=== PATIENT | female | born 1935 | race Caucasian/White ===

== ENCOUNTER 2017-09-25 19:45 | Inpatient (IN) | payer OTHER ==
[~2017-09-25] VITALS: Ht 160 cm; Wt 89.4 kg
[2017-09-25 20:47] VITALS: BP 155/79; PULSE 78; TEMP 36.7; O2SAT 97; Ht 160 cm; Wt 89.4 kg
[2017-09-25 21:00] VITALS: BP 155/79; PULSE 79; TEMP 36.7; O2SAT 99
[2017-09-25] MEDS ORDERED: NF34 (21:21)
[2017-09-25] MEDS ORDERED: ASPI1TAB83 PO (21:21)
[2017-09-25] MEDS ORDERED: ADVIN50/60 INH (21:21)
[2017-09-25] MEDS ORDERED: MICO2CRE48 (21:21)
[2017-09-25] MEDS ORDERED: GUAISYP4 PO (21:21)
[2017-09-25] MEDS ORDERED: SITA50TA3 PO (21:21)
[2017-09-25] MEDS ORDERED: LEVO100T PO (21:21)
[2017-09-25] MEDS ORDERED: COLE1TAB PO (21:21)
[2017-09-25] MEDS ORDERED: GLIP-199 PO (21:21)
[2017-09-25] MEDS ORDERED: METF-384 PO (21:21)
[2017-09-25] MEDS ORDERED: MAGNESIUM HYDROXIDE SUSP 30 ML UDC PO PRN ×2 (22:00→22:15)
[2017-09-25] MEDS ORDERED: ONDANSETRON INJ 2 MG/ML 2 ML VIAL IV PRN (22:00)
[2017-09-25] MEDS ORDERED: GUAIFENESIN/CODEINE 100MG/10MG 5ML UDC PO PRN (22:00)
[2017-09-25] MEDS ORDERED: POLYETHYLENE (MIRALAX) 17 GM PACK PO PRN (22:00)
[2017-09-25] MEDS ORDERED: ALUMINUM/MAGNESIUM/SIMETH (MAALOX MAX) 30 ML UDC PO PRN (22:00)
[2017-09-25 22:11] VITALS: BP 155/79; PULSE 79; TEMP 36.7; O2SAT 99
[2017-09-25] MEDS ORDERED: NALOXONE HCL 0.4 MG/1 ML VIAL/CARP IV PRN (22:15)
[2017-09-25] MEDS ORDERED: SOD PHOSPHATE/SOD BIPHOSPHATE ENEMA 132 ML BTL PR PRN (22:15)
[2017-09-25] MEDS ORDERED: PATIENT'S ALLERGY INFO NEEDS ENTERED SCH (22:15)
[2017-09-25] MEDS ORDERED: BISACODYL 10 MG SUPP PR PRN (22:15)
[2017-09-25] MEDS ORDERED: GLUCAGON FOR INJ 1 MG VIAL SQ PRN (22:45)
[2017-09-25] MEDS ORDERED: GLUCOSE 10 TABS/TUBE PO PRN (22:45)
[2017-09-25] MEDS ORDERED: DEXTROSE 50% 50 ML SYR IV PRN (22:45)
[2017-09-25] MEDS ORDERED: GLUCOSE 40% GEL 15 GM TUBE PO PRN (22:45)
[2017-09-25 23:13] LABS: HEMATOCRIT 34.8 % (37-47); HEMOGLOBIN 11.3 g/dL (12.0-16.0); MEAN CELL VOLUME 88.1 fL (80-100); MEAN CORPUSCULAR HEMOGLOBIN 28.6 pg (25-34); MEAN CORPUSCULAR HGB CONC 32.5 g/dl (32-36); MEAN PLATELET VOLUME 9.5 fL (7.4-10.4); PLATELET COUNT 275 K/uL (130-400); RED CELL DISTRIBUTION WIDTH CV 14.4 % (11.5-14.5); RED CELL DISTRIBUTION WIDTH SD 46.4 fL (36.4-46.3)
--- NOTE | 2017-09-25 23:15 | History and Physical ---
History & Physical Date & Time of Service: Sep 25, 2017 at 22:53 Chief Complaint: Left Hip Fracture Primary Care Physician: Miles Poe M.D. History of Present Illness Source: patient, hospital records 82 y/o F Hx HPL, hypothyroidism, DM II. Presents as a transfer from an outside hospital due to a L hip fracture. The pt was working outside her house, lost her balance, and fell on her L side. She remained on the ground for 45 min waiting for a car to pass by and then dragged herself indoors to call EMS. She denies symptoms preceding her fall such as CP, SOB, palpitations or lightheadedness. A L intertrochanteric fracture was confirmed on arrival to the hospital. The pt normally mobilizes with a cane. She has a chair-lift to ascend her stairs. She states she remains active throughout the day and does not report SOB. She denies a history of CAD, CHF or cerebrovascular disease. She states that her mitral valve is "weak". She has a LBBB which dates back to the 1980s. She stated that her MD at one point thought she had a silent DC but then told her that this was not the case. Past Medical/Surgical History 1) HPL 2) DM II 3) Hypothyroidism 4) Mitral valve disease (not confirmed) 5) LBBB Social History MAintains independence - no history of smoking or smoking Smoking Status: Never Smoker Allergies Coded Allergies: Felodipine (Verified Allergy, Unknown, RASH, 09/25/17) Gabapentin (Verified Allergy, Unknown, RASH, 09/25/17) Penicillins (Verified Allergy, Unknown, RASH, 09/25/17) Sulfa Antibiotics (Verified Allergy, Unknown, RASH, 09/25/17) Tetracycline (Verified Allergy, Unknown, RASH, 09/25/17) Home Medications Scheduled Aspirin (Aspirin), 1 TAB PO DAILY Colestipol Hcl (Colestid), 5 GM PO DAILY Fluticasone Prop/Salmeterol (Advair Diskus 500/50 60 Dose), 1 PUFFS INH BID Glipizide (Glipizide Er), 1 TAB PO HS Levothyroxine Sodium (Synthroid), 1 TAB PO DAILY Metformin Hcl (Glucophage), 1,000 MG PO BID Sitagliptin (Januvia), 50 MG PO DAILY Scheduled PRN Guaifenesin/Codeine (Robitussin-Ac Syrup), 5 ML PO Q4 PRN for Cough Miscellaneous Medications Clobetasol Propionate (Clobetasol Propionate) Miconazole Nitrate Vaginal (Miconazole) Review of Systems Constitutional: No fever, No chills, No sweats Eyes: No worsening of vision ENT: No hearing loss, No unusual epistaxis, No nasal symptoms Respiratory: No cough, No wheezing Cardiovascular: No chest pain, No orthopnea, No PND Abdomen: No pain, No nausea, No vomiting Musculoskeletal: + joint pain (Pain in L hip - describes stiffness on R and chronic pain in R 1st toe) Genitourinary - Female: No dysuria, No urinary frequency, No urinary urgency Neurologic: No memory loss Psychiatric: No depression symptoms Endocrine: No fatigue Hematologic / Lymphatic: No abnormal bleeding/bruising Integumentary: No rash Allergic / Immunologic: No environmental allergies Physical Exam Vital Signs Date Time Temp Pulse Resp B/P (MAP) Pulse Ox O2 Delivery O2 Flow Rate FiO2 09/25/17 22:11 36.7 79 18 99 09/25/17 21:00 99 Room Air 09/25/17 21:00 36.7 79 18 155/79 (104) 99 Room Air 09/25/17 20:47 36.7 78 18 155/79 97 Room Air General Appearance: WD/WN, no apparent distress Head: normocephalic Eyes: normal inspection ENT: normal ENT inspection, pharynx normal Neck: supple, no JVD Respiratory/Chest: chest non-tender, lungs clear Cardiovascular: regular rate, rhythm, no edema Abdomen/GI: normal bowel sounds, non tender, soft Back: normal inspection, no CVA tenderness Extremities/Musculoskelatal: + pertinent finding (Pain to palpation on L - pulses present BL) 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 Presents as a transfer from an outside hospital due to a L hip fracture. The pt was working outside her house, lost her balance, and fell on her L side. She remained on the ground for 45 min waiting for a car to pass by and then dragged herself indoors to call EMS. She denies symptoms preceding her fall such as CP, SOB, palpitations or lightheadedness. A L intertrochanteric fracture was confirmed on arrival to the hospital. The pt normally mobilizes with a cane. She has a chair-lift to ascend her stairs. She states she remains active throughout the day and does not report SOB. She denies a history of CAD, CHF or cerebrovascular disease. She states that her mitral valve is "weak". She has a LBBB which dates back to the 1980s. She stated that her MD at one point thought she had a silent DC but then told her that this was not the case. 1) L intertrochanteric fracture. If we are to overlook her LBBB, the pt's RCRI is technically 0.9%. In order to more accurately gauge her risk however, it may be prudent to call her PCP AM to clarify her cardiac history. NPO - IVF and analgesics provided - labs are pending at the time of admission. 2) DM II - placed on SS. 3) Hypothyroidism - cont Synthroid. 4) HPL - can resume meds post-op when eating Full code - SCDs pending surgery eval Total time for this admit including review of labs, meds, imaging, records - discussion with pt and ER attending - 35 min Advanced Directives Existing Living Will: Yes Existing Power of Quill Winder: Yes Resuscitation Status VTE Prophylaxis Will order VTE Prophylaxis: Yes
[2017-09-25] MEDS: MoRPHine SULFATE 4 MG/ML 1 ML CARP\\VIAL IV PRN (23:38)
[2017-09-25 23:39] LABS: CALCIUM 10.2 mg/dl (8.5-10.1); CREATININE 1.1 mg/dl (0.60-1.20); POTASSIUM 5.2 mmol/L (3.5-5.1)
[2017-09-25] MEDS: INSULIN ASPART 100 UNITS/ML 3 ML PEN SC SCH (23:40)
[2017-09-25 23:54] VITALS: BP 131/67; PULSE 71; TEMP 36.4; O2SAT 94
[2017-09-26] VITALS (9 sets, daily range): BP systolic 112–150; BP diastolic 60–77; PULSE 71–87; TEMP 36.3–37.1; O2SAT 93–99
[2017-09-26] MEDS ORDERED: NURSING DECISION MEDICATION ORDER SCH ×2 (03:00→05:00)
[2017-09-26] MEDS: SODIUM CHLORIDE 0.9% 1000ML 1,000 ML IV SCH ×2 (03:04→19:22)
[2017-09-26] MEDS: INSULIN ASPART 100 UNITS/ML 3 ML PEN SC SCH ×5 (04:03→20:56)
[2017-09-26] MEDS: LEVOTHYROXINE 100 MCG TAB PO SCH (05:58)
[2017-09-26] MEDS ORDERED: VANCOMYCIN IV 1,000 MG in SODIUM CHLORIDE 0.9% 250ML 250 ML IV SCH (06:00)
--- NOTE | 2017-09-26 08:23 | Family Medicine Progress Note ---
Progress Note Date of Service Sep 26, 2017. Resident Tracking Resident Involvement: Resident Care Provided Care Provided: Adult Hospital Medicine
[2017-09-26 08:43] LABS: BASO % 0.6 %; BASO ABS # 0.07 K/uL (0-0.2); EOS % 1.1 %; EOS ABS # 0.12 K/uL (0-0.5); HEMATOCRIT 32.4 % (37-47); HEMOGLOBIN 10.4 g/dL (12.0-16.0); IG# 0.07 K/uL (0.00-0.02); LYMPH % 12.9 %; LYMPH ABS # 1.47 K/uL (1.2-3.4); MEAN CELL VOLUME 88.5 fL (80-100); MEAN CORPUSCULAR HEMOGLOBIN 28.4 pg (25-34); MEAN CORPUSCULAR HGB CONC 32.1 g/dl (32-36); MEAN PLATELET VOLUME 9.2 fL (7.4-10.4); MONO % 8.5 %; MONO ABS # 0.97 K/uL (0.11-0.59); NEUT % 76.3 %; NEUT ABS # 8.66 K/uL (1.4-6.5); PLATELET COUNT 242 K/uL (130-400); RED CELL DISTRIBUTION WIDTH CV 14.5 % (11.5-14.5); RED CELL DISTRIBUTION WIDTH SD 47.3 fL (36.4-46.3); WHITE BLOOD COUNT 11.36 K/uL (4.8-10.8)
[2017-09-26] MEDS ORDERED: ASPIRIN 81 MG ECTAB PO SCH (09:00)
--- NOTE | 2017-09-26 09:04 | Orthopedic Consultation ---
Orthopedic Consultation Date of Consultation: Sep 26, 2017. Attending Physician: Daneyl Cates M.D. Reason for Consultation: Left hip pain/fracture (Foritno Harp PA) History of Present Illness Lawanda is a 82 y/o female from [place]. She was on her porch yesterday putting the tarp over her firewood when she lost her balance and fell landing on her left side. She had immediate hip pain. She crawled inside and called 911. She had xrays at [place] and was transferred here for definitive care. Per the reports, she has a left intertroch hip fx. She has some bruises and abrasions on her arms, some left rib pain. No other complaints. She reports some pain in this hip prior to her fall and used a cane for ambulation. Her complete history was reviewed and please refer to initial h & p. (Fortino Harp PA) Social History Smoking Status: Never Smoker (Fortino Harp PA) Allergies Coded Allergies: Felodipine (Verified Allergy, Unknown, RASH, 09/25/17) Gabapentin (Verified Allergy, Unknown, RASH, 09/25/17) Penicillins (Verified Allergy, Unknown, RASH, 09/25/17) Sulfa Antibiotics (Verified Allergy, Unknown, RASH, 09/25/17) Tetracycline (Verified Allergy, Unknown, RASH, 09/25/17) Home Medications Scheduled Aspirin (Aspirin), 1 TAB PO DAILY Colestipol Hcl (Colestid), 5 GM PO DAILY Fluticasone Prop/Salmeterol (Advair Diskus 500/50 60 Dose), 1 PUFFS INH BID Glipizide (Glipizide Er), 1 TAB PO HS Levothyroxine Sodium (Synthroid), 1 TAB PO DAILY Metformin Hcl (Glucophage), 1,000 MG PO BID Sitagliptin (Januvia), 50 MG PO DAILY Scheduled PRN Guaifenesin/Codeine (Robitussin-Ac Syrup), 5 ML PO Q4 PRN for Cough Miscellaneous Medications Clobetasol Propionate (Clobetasol Propionate) Miconazole Nitrate Vaginal (Miconazole) Current Inpatient Medications Current Inpatient Medications Medications (Trade) Dose Ordered Sig/Kaley Route Start Time Stop Time Status Last Admin Dose Admin Salmeterol Xinafoate/ Fluticasone (Advair Diskus 500/50 Inh) 1 puff BID INH 09/26/17 09:00 10/26/17 08:59 Codeine Phosphate/ Guaifenesin (Robitussin-AC Sugar Free Syrup) 5 ml Q4 PRN PO 09/25/17 22:00 10/25/17 21:59 Levothyroxine Sodium (Synthroid Tab) 100 mcg DAILYBB PO 09/26/17 06:00 10/26/17 05:59 09/26/17 05:58 100 MCG Acetaminophen (Tylenol Tab) 650 mg Q4H PRN PO 09/25/17 22:00 10/25/17 21:59 Al Hydrox/Mg Hydrox/Simethicone (Maalox Max Susp) 15 ml Q4H PRN PO 09/25/17 22:00 10/25/17 21:59 Magnesium Hydroxide (Milk Of Magnesia Susp) 30 ml Q6H PRN PO 09/25/17 22:00 10/25/17 21:59 Polyethylene (Miralax Powder Packet) 17 gm DAILY PRN PO 09/25/17 22:00 10/25/17 21:59 Ondansetron HCl (Zofran Inj) 4 mg Q6H PRN IV 09/25/17 22:00 10/25/17 21:59 Morphine Sulfate (MoRPHine SULFATE INJ) 4 mg Q3H PRN IV 09/25/17 22:15 10/09/17 22:14 09/25/17 23:38 4 MG Naloxone HCl (Narcan Inj) 0.1 mg PRN PRN IV 09/25/17 22:15 10/25/17 22:14 Magnesium Hydroxide (Milk Of Magnesia Susp) 30 ml DAILY PRN PO 09/25/17 22:15 10/25/17 22:14 Bisacodyl (Dulcolax Supp) 10 mg DAILY PRN [place] 09/25/17 22:15 10/25/17 22:14 Sodium Biphosphate/ Sodium Phosphate (Fleet Enema) 132 ml PRN PRN [place] 09/25/17 22:15 Glucose (Glucose 40% Gel) 15-30 GRAMS 15 GRAMS... UD PRN PO 09/25/17 22:45 10/25/17 22:44 Glucose (Glucose Chew Tab) 4-8 Tablets 4 Tabl... UD PRN PO 09/25/17 22:45 10/25/17 22:44 Dextrose (Dextrose 50% 50ML Syringe) 25-50ML OF 50% DW IV FOR... UD PRN IV 09/25/17 22:45 10/25/17 22:44 Glucagon (Glucagon Inj) 1 mg UD PRN SQ 09/25/17 22:45 10/25/17 22:44 Sodium Chloride 1,000 ml @ 80 mls/hr [id number] IV 09/26/17 03:00 10/26/17 02:59 09/26/17 03:04 80 MLS/HR Miconazole Nitrate (Desenex Powder) 1 appln PRN PRN EXT 09/26/17 03:15 10/26/17 03:14 Insulin Aspart (novoLOG ASPART) SLIDING SCALE G... Q6 SC 09/26/17 06:00 10/25/17 21:59 Magnesium Oxide (Mag-Ox Tab) 400 mg BID PO 09/26/17 09:00 09/27/17 09:01 (Fortino Harp PA) Physical Exam Date Time Temp Pulse Resp B/P (MAP) Pulse Ox O2 Delivery O2 Flow Rate FiO2 09/26/17 07:25 Room Air 09/26/17 07:02 36.6 77 16 130/76 (94) 96 Room Air 09/26/17 00:30 Room Air 09/26/17 00:20 36.9 77 18 129/76 (93) 93 Room Air 09/26/17 00:02 36.4 71 20 97 09/25/17 23:54 36.4 71 20 131/67 (88) 94 Room Air 09/25/17 22:11 36.7 79 18 99 09/25/17 21:00 99 Room Air 09/25/17 21:00 36.7 79 18 155/79 (104) 99 Room Air 09/25/17 20:47 36.7 78 18 155/79 97 Room Air She is alert and oriented. NAD. Supine in bed. No tenderness of her c-spine. No pain with ROM of her upper extremities. She has some abrasions and bruises on her arms/hands. No pain with ROM of right hip or right lower extremity. She is able to DF/PF bilaterally. NVI. She has tenderness of left hip. I did not do any ROM at this time. SHe does have some tenderness of the left lower ribs. No bruising noted in this area and no difficulty breathing. (Fortino Harp PA) Laboratory Results Last 24 Hours Test 09/25/17 22:50 09/25/17 23:00 09/26/17 03:53 09/26/17 05:54 White Blood Count 16.40 K/uL Red Blood Count 3.95 M/uL Hemoglobin 11.3 g/dL Hematocrit 34.8 % Mean Corpuscular Volume 88.1 fL Mean Corpuscular Hemoglobin 28.6 pg Mean Corpuscular Hemoglobin Concent 32.5 g/dl RDW Standard Deviation 46.4 fL RDW Coefficient of Variation 14.4 % Platelet Count 275 K/uL Mean Platelet Volume 9.5 fL Sodium Level 138 mmol/L Potassium Level 5.2 mmol/L Chloride Level 107 mmol/L Carbon Dioxide Level 22 mmol/L Anion Gap 9.0 mmol/L Blood Urea Nitrogen 24 mg/dl Creatinine 1.10 mg/dl Est Creatinine Clear Calc Drug Dose 41.1 ml/min Estimated GFR () 53.8 Estimated GFR (Non- 46.4 BUN/Creatinine Ratio 21.8 Random Glucose 189 mg/dl Calcium Level 10.2 mg/dl Magnesium Level 1.7 mg/dl Total Creatine Kinase 82 U/L Bedside Glucose 185 mg/dl 192 mg/dl 156 mg/dl Test 09/26/17 08:34 White Blood Count 11.36 K/uL Red Blood Count 3.66 M/uL Hemoglobin 10.4 g/dL Hematocrit 32.4 % Mean Corpuscular Volume 88.5 fL Mean Corpuscular Hemoglobin 28.4 pg Mean Corpuscular Hemoglobin Concent 32.1 g/dl Platelet Count 242 K/uL Mean Platelet Volume 9.2 fL Neutrophils (%) (Auto) 76.3 % Lymphocytes (%) (Auto) 12.9 % Monocytes (%) (Auto) 8.5 % Eosinophils (%) (Auto) 1.1 % Basophils (%) (Auto) 0.6 % Neutrophils # (Auto) 8.66 K/uL Lymphocytes # (Auto) 1.47 K/uL Monocytes # (Auto) 0.97 K/uL Eosinophils # (Auto) 0.12 K/uL Basophils # (Auto) 0.07 K/uL RDW Standard Deviation 47.3 fL RDW Coefficient of Variation 14.5 % Immature Granulocyte % (Auto) 0.6 % Immature Granulocyte # (Auto) 0.07 K/uL (Fortino Harp PA) Assessment & Plan Assessment: Left hip pain/ hip fracture Plan: She is npo. We are waiting to see her xrays still but per the report she has an intertroch fx. I discussed treatment for this and at this time we did recommend long IM nailing of the hip fx, to be done by Dr. Smith today. Procedure was explained including risks, benefits, and alternatives to surgery. She wants to proceed with surgery. We may need to get new xrays today if we are not able to locate her disc from [place]. Teds/scd's for dvt prophylaxis. (Fortino Harp PA)
[2017-09-26 09:07] LABS: CALCIUM 9.7 mg/dl (8.5-10.1); CREATININE 1.03 mg/dl (0.60-1.20); POTASSIUM 4.9 mmol/L (3.5-5.1)
[2017-09-26] MEDS: MoRPHine SULFATE 4 MG/ML 1 ML CARP\\VIAL IV PRN ×2 (09:14→13:26)
[2017-09-26] MEDS ORDERED: VANCOMYCIN CONSULT ACTIVE PRN ×2 (09:30→16:15)
[2017-09-26 09:50] LABS: PTT PATIENT 23.9 SECONDS (21.0-31.0)
[2017-09-26] MEDS: MICONAZOLE NITRATE POWDER 43 GM EXT PRN (10:02)
--- NOTE | 2017-09-26 10:07 | DIAGNOSTIC IMAGING REPORT ---
L PELVIS/UNILATERAL HIP 2-3VIEWS HISTORY: 82 years-old Female hip pain acute left hip pain COMPARISON: None available TECHNIQUE: Portable AP view the pelvis with two views of the left hip FINDINGS: Moderate degenerative changes of the bilateral femoral acetabular joints no pelvic ring fracture identified. Bones appear mildly demineralized. There is an acute intertrochanteric fracture of the left femur with approximately 11 mm separation of the fracture fragments. No significant medial or lateral displacement. The lesser trochanter demonstrates comminuted fracture. Mild soft tissue swelling about the left hip. Peripheral vascular disease. IMPRESSION: Acute intertrochanteric left hip fracture with mild displacement. The above report was generated using voice recognition software. It may contain grammatical, syntax or spelling errors. Electronically signed by: Bruno Kc M.D. 09/26/2017 10:06 AM Dictated Date/Time: 09/26/2017 10:03 AM
[2017-09-26] MEDS: MAGNESIUM OXIDE 400 MG TAB PO SCH ×2 (10:20→20:52)
[2017-09-26] MEDS: FLUTICASONE/SALMETEROL (ADVAIR) 500/50 INH 14 PUFF INH SCH ×2 (10:21→20:53)
--- NOTE | 2017-09-26 11:32 | Progress Note ---
Medicine Progress Note Date & Time of Visit: Sep 26, 2017 at 11:28 . Subjective 82 YO female transferred from [facility] ED yesterday with left hip fracture. Admitted by [facility], being transferred to our service today because of [facility] PCP. History of aortic valve sclerosis without stenosis, asthma, sleep apnea on CPAP , sarcoidosis, DM type II, CKD III. Echo performed at [facility] 01/16/14 demonstrated mild concentric LVH, LVEF 60%, mild aortic valve sclerosis. No chest pain. No cough or dyspnea. No nausea or vomiting. Chronic loose stools. . Objective Last 8 Hrs Date Time Temp Pulse Resp B/P (MAP) Pulse Ox O2 Delivery O2 Flow Rate FiO2 09/26/17 11:10 Room Air 09/26/17 07:25 Room Air 09/26/17 07:02 36.6 77 16 130/76 (94) 96 Room Air Physical Exam: General- adult female, no distress Neck- no JVD Lungs- clear Heart- regular, 1/6 systolic murmur at base, no gallop Abdomen- normal bowel sounds, soft, nontender Extremities- SCDs applied Neuro- alert, oriented . Laboratory Results: Last 24 Hours Test 09/25/17 22:50 09/25/17 23:00 09/26/17 03:53 09/26/17 05:54 White Blood Count 16.40 K/uL Red Blood Count 3.95 M/uL Hemoglobin 11.3 g/dL Hematocrit 34.8 % Mean Corpuscular Volume 88.1 fL Mean Corpuscular Hemoglobin 28.6 pg Mean Corpuscular Hemoglobin Concent 32.5 g/dl RDW Standard Deviation 46.4 fL RDW Coefficient of Variation 14.4 % Platelet Count 275 K/uL Mean Platelet Volume 9.5 fL Sodium Level 138 mmol/L Potassium Level 5.2 mmol/L Chloride Level 107 mmol/L Carbon Dioxide Level 22 mmol/L Anion Gap 9.0 mmol/L Blood Urea Nitrogen 24 mg/dl Creatinine 1.10 mg/dl Est Creatinine Clear Calc Drug Dose 41.1 ml/min Estimated GFR () 53.8 Estimated GFR (Non- 46.4 BUN/Creatinine Ratio 21.8 Random Glucose 189 mg/dl Calcium Level 10.2 mg/dl Magnesium Level 1.7 mg/dl Total Creatine Kinase 82 U/L Bedside Glucose 185 mg/dl 192 mg/dl 156 mg/dl Test 09/26/17 08:34 09/26/17 09:31 White Blood Count 11.36 K/uL Red Blood Count 3.66 M/uL Hemoglobin 10.4 g/dL Hematocrit 32.4 % Mean Corpuscular Volume 88.5 fL Mean Corpuscular Hemoglobin 28.4 pg Mean Corpuscular Hemoglobin Concent 32.1 g/dl Platelet Count 242 K/uL Mean Platelet Volume 9.2 fL Neutrophils (%) (Auto) 76.3 % Lymphocytes (%) (Auto) 12.9 % Monocytes (%) (Auto) 8.5 % Eosinophils (%) (Auto) 1.1 % Basophils (%) (Auto) 0.6 % Neutrophils # (Auto) 8.66 K/uL Lymphocytes # (Auto) 1.47 K/uL Monocytes # (Auto) 0.97 K/uL Eosinophils # (Auto) 0.12 K/uL Basophils # (Auto) 0.07 K/uL RDW Standard Deviation 47.3 fL RDW Coefficient of Variation 14.5 % Immature Granulocyte % (Auto) 0.6 % Immature Granulocyte # (Auto) 0.07 K/uL Sodium Level 137 mmol/L Potassium Level 4.9 mmol/L Chloride Level 108 mmol/L Carbon Dioxide Level 24 mmol/L Anion Gap 5.0 mmol/L Blood Urea Nitrogen 23 mg/dl Creatinine 1.03 mg/dl Est Creatinine Clear Calc Drug Dose 43.9 ml/min Estimated GFR () 58.2 Estimated GFR (Non- 50.2 BUN/Creatinine Ratio 22.2 Random Glucose 154 mg/dl Calcium Level 9.7 mg/dl Prothrombin Time 10.4 SECONDS Prothromb Time International Ratio 1.0 Activated Partial Thromboplast Time 23.9 SECONDS Partial Thromboplastin Ratio 0.9 Date/Time Source Procedure Growth Status 09/25/17 23:15 Nasal MRSA DNA Surveillance Screen - Final Specimen Negative for MRSA by DNA Probe Complete Diagnostic Imaging: SINGLE VIEW CHEST FINDINGS: An AP, portable, semierect chest radiograph is obtained. No prior studies are available for comparison at the time of dictation. The examination is degraded by portable technique and patient rotation. The cardiomediastinal silhouette is unremarkable, noting atherosclerotic calcification of the thoracic aorta. Nonspecific interstitial thickening is noted. No airspace consolidation or pleural effusion is identified. No pneumothorax is seen. The skeletal structures are osteopenic. The bony thorax is grossly intact. Degenerative change is noted throughout the thoracic spine. Surgical clips are present in the left lower neck. IMPRESSION: No acute cardiopulmonary abnormality. Electronically signed by: Pedro Cuadra M.D. 09/26/2017 11:54 AM Dictated Date/Time: 09/26/2017 11:53 AM L PELVIS/UNILATERAL HIP 2-3VIEWS FINDINGS: Moderate degenerative changes of the bilateral femoral acetabular joints no pelvic ring fracture identified. Bones appear mildly demineralized. There is an acute intertrochanteric fracture of the left femur with approximately 11 mm separation of the fracture fragments. No significant medial or lateral displacement. The lesser trochanter demonstrates comminuted fracture. Mild soft tissue swelling about the left hip. Peripheral vascular disease. IMPRESSION: Acute intertrochanteric left hip fracture with mild displacement. The above report was generated using voice recognition software. It may contain grammatical, syntax or spelling errors. Electronically signed by: Bruno Kc M.D. 09/26/2017 10:06 AM Dictated Date/Time: 09/26/2017 10:03 AM . Other Studies: EKG performed at 1127 reviewed and demonstrated normal sinus rhythm at 80/minute , left bundle branch block, conduction related repolarization abnormalities. . Assessment & Plan INTERTROCHANTERIC FRACTURE LEFT HIP Medically stable for repair. AORTIC SCLEROSIS No significant stenosis per echo 2013. LEFT BUNDLE BRANCH BLOCK Old EKG's reviewed. LBBB was noted in 2009. ASTHMA / SARCOIDOSIS Pulmonary status stable. Continue Advair. Nebs PRN. Incentive spirometry. DM TYPE 2 Usually well-controlled. Hgb A1C 5.5 06/07/18. Hold oral agents during hospital stay. Lantus / NovoLog per protocol. HYPOTHYROIDISM TSH 11.47 06/07/17. Check repeat TSH. Continue levothyroxine. VTE PROPHYLAXIS Per hip fracture protocol. SCD's ordered preoperatively. DISPOSITION To be determined. Medical follow-up with Dr. Ingram. Medically stable for OR. Copy of echo 2013 placed on chart. . Current Inpatient Medications: Current Inpatient Medications Medications (Trade) Dose Ordered Sig/Kaley Route Start Time Stop Time Status Last Admin Dose Admin Salmeterol Xinafoate/ Fluticasone (Advair Diskus 500/50 Inh) 1 puff BID INH 09/26/17 09:00 10/26/17 08:59 09/26/17 10:21 1 PUFF Codeine Phosphate/ Guaifenesin (Robitussin-AC Sugar Free Syrup) 5 ml Q4 PRN PO 09/25/17 22:00 10/25/17 21:59 Levothyroxine Sodium (Synthroid Tab) 100 mcg DAILYBB PO 09/26/17 06:00 10/26/17 05:59 09/26/17 05:58 100 MCG Acetaminophen (Tylenol Tab) 650 mg Q4H PRN PO 09/25/17 22:00 10/25/17 21:59 Al Hydrox/Mg Hydrox/Simethicone (Maalox Max Susp) 15 ml Q4H PRN PO 09/25/17 22:00 10/25/17 21:59 Magnesium Hydroxide (Milk Of Magnesia Susp) 30 ml Q6H PRN PO 09/25/17 22:00 10/25/17 21:59 Polyethylene (Miralax Powder Packet) 17 gm DAILY PRN PO 09/25/17 22:00 10/25/17 21:59 Ondansetron HCl (Zofran Inj) 4 mg Q6H PRN IV 09/25/17 22:00 10/25/17 21:59 Morphine Sulfate (MoRPHine SULFATE INJ) 4 mg Q3H PRN IV 09/25/17 22:15 10/09/17 22:14 09/26/17 09:14 4 MG Naloxone HCl (Narcan Inj) 0.1 mg PRN PRN IV 09/25/17 22:15 10/25/17 22:14 Magnesium Hydroxide (Milk Of Magnesia Susp) 30 ml DAILY PRN PO 09/25/17 22:15 10/25/17 22:14 Bisacodyl (Dulcolax Supp) 10 mg DAILY PRN [place] 09/25/17 22:15 10/25/17 22:14 Sodium Biphosphate/ Sodium Phosphate (Fleet Enema) 132 ml PRN PRN [place] 09/25/17 22:15 Glucose (Glucose 40% Gel) 15-30 GRAMS 15 GRAMS... UD PRN PO 09/25/17 22:45 10/25/17 22:44 Glucose (Glucose Chew Tab) 4-8 Tablets 4 Tabl... UD PRN PO 09/25/17 22:45 10/25/17 22:44 Dextrose (Dextrose 50% 50ML Syringe) 25-50ML OF 50% DW IV FOR... UD PRN IV 09/25/17 22:45 10/25/17 22:44 Glucagon (Glucagon Inj) 1 mg UD PRN SQ 09/25/17 22:45 10/25/17 22:44 Sodium Chloride 1,000 ml @ 80 mls/hr [id number] IV 09/26/17 03:00 10/26/17 02:59 09/26/17 03:04 80 MLS/HR Miconazole Nitrate (Desenex Powder) 1 appln PRN PRN EXT 09/26/17 03:15 10/26/17 03:14 09/26/17 10:02 1 APPLN Insulin Aspart (novoLOG ASPART) SLIDING SCALE G... Q6 SC 09/26/17 06:00 10/25/17 21:59 Magnesium Oxide (Mag-Ox Tab) 400 mg BID PO 09/26/17 09:00 09/27/17 09:01 09/26/17 10:20 400 MG Vancomycin HCl 1000 mg/Sodium Chloride 270 ml @ 125 mls/hr PREOP IV 09/26/17 06:00 09/26/17 18:00
--- NOTE | 2017-09-26 11:55 | DIAGNOSTIC IMAGING REPORT ---
SINGLE VIEW CHEST CLINICAL HISTORY: Preoperative examination. Hip fracture. FINDINGS: An AP, portable, semierect chest radiograph is obtained. No prior studies are available for comparison at the time of dictation. The examination is degraded by portable technique and patient rotation. The cardiomediastinal silhouette is unremarkable, noting atherosclerotic calcification of the thoracic aorta. Nonspecific interstitial thickening is noted. No airspace consolidation or pleural effusion is identified. No pneumothorax is seen. The skeletal structures are osteopenic. The bony thorax is grossly intact. Degenerative change is noted throughout the thoracic spine. Surgical clips are present in the left lower neck. IMPRESSION: No acute cardiopulmonary abnormality. Electronically signed by: Pedro Cuadra M.D. 09/26/2017 11:54 AM Dictated Date/Time: 09/26/2017 11:53 AM
--- NOTE | 2017-09-26 12:57 | History & Physical Bridge Note ---
H&P Re-Evaluation Bridge Note: I have examined the patient, reviewed the History & Physical and in the interval since the performance of the History & Physical I have noted the following changes of clinical significance: No changes noted
[2017-09-26] MEDS ORDERED: VANCOMYCIN 1GM/270ML NSS ONE (14:11)
[2017-09-26] MEDS ORDERED: LIDOCAINE HCL 2% 2 ML VIAL (20MG/ML) ONE (14:13)
[2017-09-26] MEDS ORDERED: DEXAMETHASONE SOD INJ 4 MG/ML VIAL ONE (14:13)
[2017-09-26] MEDS ORDERED: ONDANSETRON INJ 2 MG/ML 2 ML VIAL ONE ×2 (14:13→16:24)
[2017-09-26] MEDS ORDERED: PROPOFOL IV EMULSION 10 MG/ML 20 ML VIAL IV ONE (14:13)
[2017-09-26] MEDS ORDERED: FENTANYL CITRATE INJ 50 MCG/1 ML 2 ML VIAL ONE ×2 (14:14→15:24)
[2017-09-26] MEDS ORDERED: BUPIVACAINE/EPINEPHRINE 0.5% MPF 1:200,000 30 ML VIAL ONE (14:17)
[2017-09-26] MEDS ORDERED: ONDANSETRON INJ 2 MG/ML 2 ML VIAL IV PRN (15:00)
[2017-09-26] MEDS ORDERED: PROMETHAZINE HCL INJ 12.5 MG in SODIUM CHLORIDE 0.9% 50ML 50 ML IV PRN (15:00)
[2017-09-26] MEDS ORDERED: LABETALOL HCL IV 5 MG/ML 20ML IV PRN (15:00)
[2017-09-26] MEDS ORDERED: ATROPINE SULFATE 0.1 MG/ML 5ML SYR IV PRN (15:00)
[2017-09-26] MEDS ORDERED: HYDROmorphone INJ 1 MG/ML SYR IV PRN (15:00)
[2017-09-26] MEDS ORDERED: NALOXONE HCL 0.4 MG/1 ML VIAL/CARP IV PRN (15:00)
[2017-09-26] MEDS ORDERED: EpHEDrine SULFATE INJ 50 MG/ML AMP IV PRN (15:00)
[2017-09-26] MEDS ORDERED: FLUMAZENIL 0.1 MG/1 ML 10 ML VIAL IV PRN (15:00)
--- NOTE | 2017-09-26 16:05 | [facility] Post Operative Brief Note ---
Immediate Operative Summary Operative Date Sep 26, 2017. Pre-Operative Diagnosis Left Intertrochanteric Hip Fracture Post-Operative Diagnosis Left Intertrochanteric Hip Fracture Procedure(s) Performed Long Intramedullary Nailing Left Hip Surgeon Dr. Michael Smith Log Turner Surgeon(s) Migel Harp PA-C Estimated Blood Loss 100ML Findings Consistent with Post-Op Diagnosis Fluids (cc crystalloids) 800 cc Specimens none per surgeon Dr. Michael Smith Drains None Anesthesia Type General Complication(s) none Disposition Accompanied Pt To Recover: no Disposition: Recovery Room / PACU
[2017-09-26] MEDS ORDERED: MAGNESIUM HYDROXIDE SUSP 30 ML UDC PO PRN (16:15)
[2017-09-26] MEDS ORDERED: BISACODYL 10 MG SUPP PR PRN (16:15)
--- NOTE | 2017-09-26 16:22 | DIAGNOSTIC IMAGING REPORT ---
L HIP OR FILMS CLINICAL HISTORY: LT TROCH NAIL COMPARISON STUDY: Pelvis and left hip radiograph September 26, 2017. FLUOROSCOPY TIME: 1 minute and 38 seconds.. FINDINGS: 4 fluoroscopic images demonstrate internal fixation of the intertrochanteric fracture of the left femur with trochanteric nail. Hardware is intact. Fracture alignment has improved. There are no unexpected radiopaque foreign bodies. There is a distal screw. IMPRESSION: Expected findings following internal fixation of the intertrochanteric fracture of the left femur with trochanteric nail. Electronically signed by: Reid Newsome M.D. 09/26/2017 4:21 PM Dictated Date/Time: 09/26/2017 4:20 PM
[2017-09-26] MEDS ORDERED: NEOSTIGMINE METHYLSULFATE 5 MG/5 ML SYR ONE (16:24)
[2017-09-26] MEDS ORDERED: GLYCOPYRROLATE INJ 0.2 MG/ML VIAL ONE (16:24)
[2017-09-26] MEDS ORDERED: CISATRACURIUM BESYLATE IV SOLN 2 MG/ML 10 ML VIAL ONE (16:24)
[2017-09-26] MEDS ORDERED: HYDROmorphone INJ 0.5 MG/0.5 ML SYR ONE (16:45)
--- NOTE | 2017-09-26 16:50 | Anesthesiology Progress Note ---
Anesthesia Post Op Note Date & Time Sep 26, 2017 at 16:50 Vital Signs Pain Intensity: 6 Vital Signs Past 12 Hours Date Time Temp Pulse Resp B/P (MAP) Pulse Ox O2 Delivery O2 Flow Rate FiO2 09/26/17 16:45 36.4 72 16 152/52 99 Oxymask 2 09/26/17 16:35 76 16 153/61 100 Oxymask 10 09/26/17 16:25 82 18 162/58 100 Oxymask 10 09/26/17 16:18 36.4 96 18 149/95 99 Oxymask 10 09/26/17 11:10 Room Air 09/26/17 07:25 Room Air 09/26/17 07:02 36.6 77 16 130/76 (94) 96 Room Air Notes Mental Status: alert / awake / arousable, participated in evaluation Pt Amnestic to Procedure: Yes Nausea / Vomiting: adequately controlled Pain: adequately controlled Airway Patency, RR, SpO2: stable & adequate BP & HR: stable & adequate Hydration State: stable & adequate Anesthetic Complications: no major complications apparent
[2017-09-26] MEDS ORDERED: NURSING VERBAL MED ORDER ONE ×2 (18:30→19:15)
--- NOTE | 2017-09-26 18:30 | OPERATIVE REPORT ---
DATE OF OPERATION: 09/26/2017 SURGEON: Dr. Michael Smith. SHEET SORTER: TRENT Aguilar PREOPERATIVE DIAGNOSIS: Left displaced intertrochanteric hip fracture. POSTOPERATIVE DIAGNOSIS: Same. PROCEDURE PERFORMED: Left long cephalomedullary nailing of the left intertrochanteric hip fracture. COMPLICATIONS: None. ESTIMATED BLOOD LOSS: 100 mL. FLUID REPLACEMENT: 800 mL of fluid replacement. ANESTHESIA: General. SPECIMENS: None. OPERATIVE INDICATIONS: The patient is an 82-year-old female who ambulates with use of cane who sustained a fall yesterday. She lost her balance and fell and injured her left hip. She had acute onset of pain. She actually had to crawl to get to the phone and get some help and was taken to [facility] where x-rays revealed intertrochanteric hip fracture. She was transferred to our institution for care. The patient is medically optimized and indicated for surgical repair. OPERATIVE FINDINGS: Operative findings revealed comminuted fracture. It was fairly comminuted through the intertrochanteric area. The greater trochanter was broken off. OPERATIVE IMPLANTS: Operative implants consisted of: 1. Synthes left 340 x 11 mm long trochanteric nail. 2. A 90 mm helical blade. 3. A 5.0 x 40 distal interlocking screw. OPERATIVE PROCEDURE: The patient taken to the operating room, identified and placed on the operating table in supine position. All contact areas were appropriately padded. IV antibiotics were provided by the anesthesia team. A general anesthetic was implemented by anesthesia team. The patient was then transferred to the fracture table. The patient was then placed in the left leg traction and the right leg was placed in a well leg ross. I applied some longitudinal traction and internally rotated the foot so the kneecap pointed to the ceiling. X-ray was brought in. I got this perfectly aligned on the lateral but the AP, had still just was translated some. I tried my best to try and manipulate this but had to accept this. The left hip and leg were then prepped and draped in usual sterile fashion. A curvilinear incision was made just proximal to the tip of the trochanter. Sharp dissection was carried out through the subcutaneous tissues down to the level of the gluteal fascia. She had a fairly large thick soft tissue envelope. The incision was made in the gluteal fascia. A guidewire was then placed just off the tip of lateral trochanter and in line with the IM canal. There was a fairly significant gap in this area. I passed this down under fluoroscopic guidance and verified position. I then over reamed this with a 17 mm reamer. We took great care to make sure we removed bone to allow bony apposition. I then removed the wire and changed it for a ball-tipped guidewire. I then measured and a 340 mm nail was selected. I overreamed the guidewire with a 12 mm reamer. A 340 x 11 mm left long trochanteric nail was then selected and placed over the guidewire. It was tapped into position. The lateral aiming arm was placed. A stab incision was made and the lateral aiming arm was advanced to the lateral aspect of the femur. A guidewire was placed in the central aspect of the femoral head and neck in both the AP and lateral planes. We are just slightly posterior and we elected to accept this. I measured this and a 90 mm helical blade was selected. The cortical drill was used to breach the cortex and the triple reamer set at 90 and overreamed the guidewire. A 90 mm helical blade was then placed over the guidewire. We tapped this into position. I then tightened the proximal derotational screw. I then compressed the fracture and distracted some. This was done by turning the guide clockwise and compressing across the intertrochanteric region. Once this was complete, the proximal guide was removed. Some final x-rays were obtained. Attention was then drawn toward distal interlocking. I used a [place] pilot station technique and the distal interlocking was performed. I made a stab incision to advance the drill through the dynamic hole distally and placed a 5.0 x 40 mm distal interlocking screw in a dynamic fashion to allow some collapse. Final x-rays were obtained. Attention was then drawn toward closing. All wounds were irrigated with copious amounts of normal saline. I did inject locally with 30 mL of 0.5% Marcaine with epinephrine. The gluteal fascia were then closed with #1 Vicryl suture in running fashion. The subcutaneous tissues of all wounds were then closed with #2 Dexon suture in a buried interrupted fashion. The skin was closed skin burak. Leg was then cleaned and dried and a sterile dressing of Xeroform, 4 x 4's, and ABD pads were then applied. The patient was then taken off the fracture table. She was brought out of general anesthesia and transferred to the recovery room in stable condition. The patient tolerated the procedure well with no complications. All needle and sponge counts were correct at the end of the operation. I attest to the content of the Intraoperative Record and any orders documented therein. Any exception s are noted below.
[2017-09-26] MEDS: DOCUSATE SODIUM/SENNA 50/8.6MG TAB PO SCH (20:52)
[2017-09-27] VITALS (9 sets, daily range): BP systolic 124–148; BP diastolic 53–80; PULSE 93–118; TEMP 36.4–37.4; O2SAT 93–96
[2017-09-27] MEDS ORDERED: VANCOMYCIN IV 1,250 MG in SODIUM CHLORIDE 0.9% 250ML 250 ML IV SCH (02:00)
[2017-09-27] MEDS ORDERED: SODIUM CHLORIDE 0.9% 1000ML 250 ML IV ONE (04:30)
[2017-09-27 04:48] LABS: BASO % 0.4 %; BASO ABS # 0.04 K/uL (0-0.2); EOS % 1.1 %; HEMATOCRIT 27.2 % (37-47); HEMOGLOBIN 8.5 g/dL (12.0-16.0); IG# 0.04 K/uL (0.00-0.02); LYMPH % 11.6 %; LYMPH ABS # 1.09 K/uL (1.2-3.4); MEAN CELL VOLUME 89.8 fL (80-100); MEAN CORPUSCULAR HEMOGLOBIN 28.1 pg (25-34); MEAN CORPUSCULAR HGB CONC 31.3 g/dl (32-36); MEAN PLATELET VOLUME 9.6 fL (7.4-10.4); MONO % 10.4 %; MONO ABS # 0.98 K/uL (0.11-0.59); NEUT % 76.1 %; NEUT ABS # 7.16 K/uL (1.4-6.5); PLATELET COUNT 202 K/uL (130-400); RED CELL DISTRIBUTION WIDTH CV 14.6 % (11.5-14.5); RED CELL DISTRIBUTION WIDTH SD 48.6 fL (36.4-46.3); WHITE BLOOD COUNT 9.41 K/uL (4.8-10.8)
[2017-09-27 05:02] LABS: PTT PATIENT 28.6 SECONDS (21.0-31.0)
[2017-09-27 05:06] LABS: CALCIUM 8.6 mg/dl (8.5-10.1); CREATININE 0.96 mg/dl (0.60-1.20); POTASSIUM 4.4 mmol/L (3.5-5.1)
[2017-09-27] MEDS: LEVOTHYROXINE 100 MCG TAB PO SCH (05:30)
[2017-09-27] MEDS ORDERED: MAGNESIUM SULFATE 1GM / D5W 1 GM in PREMIXED IN D5W 100 ML IV ONE (05:30)
[2017-09-27] MEDS: MoRPHine SULFATE 4 MG/ML 1 ML CARP\\VIAL IV PRN (06:36)
[2017-09-27 06:56] LABS: HEMOGLOBIN A1C 5.5 % (4.5-5.6)
[2017-09-27] MEDS: MAGNESIUM OXIDE 400 MG TAB PO SCH (08:51)
[2017-09-27] MEDS: ASPIRIN 81 MG ECTAB PO SCH ×2 (08:51→20:35)
[2017-09-27] MEDS: FLUTICASONE/SALMETEROL (ADVAIR) 500/50 INH 14 PUFF INH SCH ×2 (08:53→20:35)
[2017-09-27] MEDS: INSULIN ASPART 100 UNITS/ML 3 ML PEN SC SCH ×4 (08:54→20:42)
[2017-09-27] MEDS: MICONAZOLE NITRATE POWDER 43 GM EXT PRN (08:56)
[2017-09-27] MEDS: OXYCODONE HCL IR 5 MG TAB (IMMEDIATE RELEASE) PO PRN (10:41)
--- NOTE | 2017-09-27 12:02 | PROGRESS NOTE ---
DATE: 09/27/2017 SUBJECTIVE: An 82-year-old female postop day #1 from a left IM nailing of an intertrochanteric fracture. She is doing pretty well. Pain is controlled. No chest pain or shortness of breath. Not feeling dizzy or lightheaded. OBJECTIVE: VITAL SIGNS: Temperature is 36.9. Some intermittent tachycardia. GENERAL: Reveals a pleasant elderly female. She is sitting up in her bedside chair and looks pretty comfortable. She is awake, alert and appropriate and oriented. EXTREMITIES: Examination of left hip reveals the dressing to be clean, dry and intact. Leg lengths appear equal. She can dorsiflex and plantarflex her foot appropriately. NEUROLOGICAL: She is neurologically intact. LABORATORY DATA: Hemoglobin is 8.5 and hematocrit 27.2. Electrolytes are stable. ASSESSMENT: An 82-year-old female postop day #2 from a left hip intramedullary nailing for an intertrochanteric fracture, doing pretty well. Pain seems to be controlled. She is anemic but without symptoms. PLAN: 1. DVT prophylaxis including thigh-high TEDs, SCDs and would recommend aspirin 81 mg twice a day for 6 weeks. 2. PT/OT. She can weightbear as tolerated on the left lower extremity. 3. Pain control, doing well with current pain regimen. 4. Medical management as per the medicine service. 5. Disposition: She is hoping to be discharged to [place] for a brief rehab stay. She will probably be stable in a day or 2 from the medical standpoint. I need to see her back 2 weeks postop. Any orthopedic questions can be directed at [phone].
[2017-09-27] MEDS: ACETAMINOPHEN 325 MG TAB PO PRN ×2 (13:32→20:36)
--- NOTE | 2017-09-27 15:28 | Progress Note ---
Subjective Date of Service: Sep 27, 2017. Subjective Pt evaluation today including: conversation w/ patient, physical exam, lab review, review of studies, review of inpatient medication list Saw/examined the patient in room 350 She is doing well, pain controlled good PO intake, no nausea/vomiting No other issues to note Review of Systems Constitutional: No fever, No chills Respiratory: No cough, No sputum, No shortness of breath Cardiac: No chest pain Musculoskeletal: No joint pain (controlled with medications) Medications Current Inpatient Medications Medications (Trade) Dose Ordered Sig/Kaley Route Start Time Stop Time Status Last Admin Dose Admin Salmeterol Xinafoate/ Fluticasone (Advair Diskus 500/50 Inh) 1 puff BID INH 09/26/17 09:00 10/26/17 08:59 09/26/17 20:53 1 PUFF Codeine Phosphate/ Guaifenesin (Robitussin-AC Sugar Free Syrup) 5 ml Q4 PRN PO 09/25/17 22:00 10/25/17 21:59 Levothyroxine Sodium (Synthroid Tab) 100 mcg DAILYBB PO 09/26/17 06:00 10/26/17 05:59 09/27/17 05:30 100 MCG Acetaminophen (Tylenol Tab) 650 mg Q4H PRN PO 09/25/17 22:00 10/25/17 21:59 09/27/17 13:32 650 MG Al Hydrox/Mg Hydrox/Simethicone (Maalox Max Susp) 15 ml Q4H PRN PO 09/25/17 22:00 10/25/17 21:59 Magnesium Hydroxide (Milk Of Magnesia Susp) 30 ml Q6H PRN PO 09/25/17 22:00 10/25/17 21:59 Polyethylene (Miralax Powder Packet) 17 gm DAILY PRN PO 09/25/17 22:00 10/25/17 21:59 Ondansetron HCl (Zofran Inj) 4 mg Q6H PRN IV 09/25/17 22:00 10/25/17 21:59 Morphine Sulfate (MoRPHine SULFATE INJ) 4 mg Q3H PRN IV 09/25/17 22:15 10/09/17 22:14 09/27/17 06:36 4 MG Naloxone HCl (Narcan Inj) 0.1 mg PRN PRN IV 09/25/17 22:15 10/25/17 22:14 Magnesium Hydroxide (Milk Of Magnesia Susp) 30 ml DAILY PRN PO 09/25/17 22:15 10/25/17 22:14 Bisacodyl (Dulcolax Supp) 10 mg DAILY PRN NV 09/25/17 22:15 10/25/17 22:14 Sodium Biphosphate/ Sodium Phosphate (Fleet Enema) 132 ml PRN PRN NV 09/25/17 22:15 Glucose (Glucose 40% Gel) 15-30 GRAMS 15 GRAMS... UD PRN PO 09/25/17 22:45 10/25/17 22:44 Glucose (Glucose Chew Tab) 4-8 Tablets 4 Tabl... UD PRN PO 09/25/17 22:45 10/25/17 22:44 Dextrose (Dextrose 50% 50ML Syringe) 25-50ML OF 50% DW IV FOR... UD PRN IV 09/25/17 22:45 10/25/17 22:44 Glucagon (Glucagon Inj) 1 mg UD PRN SQ 09/25/17 22:45 10/25/17 22:44 Miconazole Nitrate (Desenex Powder) 1 appln PRN PRN EXT 09/26/17 03:15 10/26/17 03:14 09/27/17 08:56 1 APPLN Senna/Docusate Sodium (Senokot S Tab) 2 tab HS PO 09/26/17 21:00 10/26/17 20:59 09/26/17 20:52 2 TAB Insulin Aspart (novoLOG ASPART) SLIDING SCALE G... ACHS SC 09/26/17 21:00 10/26/17 20:59 09/27/17 12:44 2 UNITS Aspirin (Ecotrin Tab) 81 mg BID PO 09/27/17 09:00 10/27/17 08:59 09/27/17 08:51 81 MG Oxycodone HCl (Roxicodone Immediate Rel Tab) 5 mg Q4H PRN PO 09/27/17 08:30 10/11/17 08:29 09/27/17 10:41 5 MG Objective Vital Signs Date Time Temp Pulse Resp B/P (MAP) Pulse Ox O2 Delivery O2 Flow Rate FiO2 09/27/17 15:05 37.4 99 18 124/66 (85) 95 Room Air 09/27/17 11:55 36.7 93 19 148/80 (102) 94 Room Air 09/27/17 11:22 108 96 09/27/17 08:29 94 Room Air 09/27/17 07:36 36.9 118 19 136/80 (98) 94 Room Air 09/27/17 07:30 114 09/27/17 07:25 Room Air 09/27/17 03:58 106 09/27/17 03:55 36.4 114 18 124/63 (83) 96 Room Air 09/26/17 23:30 37.1 85 16 144/77 (99) 97 Room Air 09/26/17 20:11 36.4 75 16 128/70 (89) 99 Room Air 09/26/17 19:30 Nasal Cannula 2.0 09/26/17 19:10 37.1 80 16 112/67 (82) 98 Nasal Cannula 2.0 09/26/17 18:14 36.3 87 18 150/68 (95) 96 Nasal Cannula 2.0 09/26/17 17:43 36.4 81 16 144/64 (90) 98 Nasal Cannula 2.0 09/26/17 17:10 94 Nasal Cannula 2.0 09/26/17 17:10 36.8 80 14 145/60 (88) 94 Nasal Cannula 2.0 09/26/17 16:55 74 16 166/66 98 Nasal Cannula 2 09/26/17 16:45 36.4 72 16 152/52 99 Oxymask 2 09/26/17 16:35 76 16 153/61 100 Oxymask 10 09/26/17 16:25 82 18 162/58 100 Oxymask 10 09/26/17 16:18 36.4 96 18 149/95 99 Oxymask 10 Physical Exam General Appearance: no apparent distress, + obese Respiratory/Chest: lungs clear, normal breath sounds, no respiratory distress, no accessory muscle use Cardiovascular: regular rate, rhythm, no murmur Extremities: non-tender, normal inspection, no pedal edema Laboratory Results Last 24 Hours Test 09/26/17 16:30 09/26/17 17:24 09/26/17 20:32 09/27/17 04:39 Bedside Glucose 179 mg/dl 188 mg/dl 228 mg/dl White Blood Count 9.41 K/uL Red Blood Count 3.03 M/uL Hemoglobin 8.5 g/dL Hematocrit 27.2 % Mean Corpuscular Volume 89.8 fL Mean Corpuscular Hemoglobin 28.1 pg Mean Corpuscular Hemoglobin Concent 31.3 g/dl Platelet Count 202 K/uL Mean Platelet Volume 9.6 fL Neutrophils (%) (Auto) 76.1 % Lymphocytes (%) (Auto) 11.6 % Monocytes (%) (Auto) 10.4 % Eosinophils (%) (Auto) 1.1 % Basophils (%) (Auto) 0.4 % Neutrophils # (Auto) 7.16 K/uL Lymphocytes # (Auto) 1.09 K/uL Monocytes # (Auto) 0.98 K/uL Eosinophils # (Auto) 0.10 K/uL Basophils # (Auto) 0.04 K/uL RDW Standard Deviation 48.6 fL RDW Coefficient of Variation 14.6 % Immature Granulocyte % (Auto) 0.4 % Immature Granulocyte # (Auto) 0.04 K/uL Red Blood Cell Morphology Unremarkable Activated Partial Thromboplast Time 28.6 SECONDS Partial Thromboplastin Ratio 1.1 Sodium Level 136 mmol/L Potassium Level 4.4 mmol/L Chloride Level 108 mmol/L Carbon Dioxide Level 23 mmol/L Anion Gap 5.0 mmol/L Blood Urea Nitrogen 16 mg/dl Creatinine 0.96 mg/dl Est Creatinine Clear Calc Drug Dose 47.1 ml/min Estimated GFR () 63.4 Estimated GFR (Non- 54.7 BUN/Creatinine Ratio 16.3 Random Glucose 167 mg/dl Estimated Average Glucose 111 mg/dl Hemoglobin A1c 5.5 % Calcium Level 8.6 mg/dl Magnesium Level 1.8 mg/dl Thyroid Stimulating Hormone (TSH) 2.030 uIu/ml Test 09/27/17 08:14 Bedside Glucose 171 mg/dl Assessment and Plan Intertrochanteric L hip Fracture * s/p repair * appreciate ortho input * pain regimen as per ortho * PT/OT * plan for rehab discharge Sinus Tachycardia * likely secondary to pain and volume depletion * improved HRs after pain medications given Asthma Hx. of Sarcoidosis * continue Advair * incentive spirometer DM2 * basal/bolus insulin while inpatient * well controlled as outpatient Aortic Sclerosis * stable, no significant stenosis LBBB * chronic/stable Hypothyroidism * TSH wnl * cont. Synthroid DVT ppx * aspirin BID Plan to d/c to rehab in 1-2 days
[2017-09-27] MEDS: DOCUSATE SODIUM/SENNA 50/8.6MG TAB PO SCH (20:35)
[2017-09-28] MEDS: LEVOTHYROXINE 100 MCG TAB PO SCH (05:33)
[2017-09-28 06:30] LABS: HEMATOCRIT 25.5 % (37-47); HEMOGLOBIN 8.3 g/dL (12.0-16.0); MEAN CELL VOLUME 88.5 fL (80-100); MEAN CORPUSCULAR HEMOGLOBIN 28.8 pg (25-34); MEAN CORPUSCULAR HGB CONC 32.5 g/dl (32-36); MEAN PLATELET VOLUME 9.7 fL (7.4-10.4); PLATELET COUNT 195 K/uL (130-400); RED CELL DISTRIBUTION WIDTH CV 14.5 % (11.5-14.5); RED CELL DISTRIBUTION WIDTH SD 47.6 fL (36.4-46.3)
[2017-09-28 06:57] LABS: CALCIUM 9.2 mg/dl (8.5-10.1); CREATININE 1.2 mg/dl (0.60-1.20); POTASSIUM 4.5 mmol/L (3.5-5.1)
--- NOTE | 2017-09-28 07:25 | Discharge Instructions ---
Discharge Instructions Date of Service Sep 28, 2017. Admission Reason for Admission: Left Hip Fracture Discharge Discharge Diagnosis / Problem: IM Nailing of Left Hip Fracture Discharge Goals Goal(s): Decrease discomfort, Improve function, Increase independence, Improve disease control, Therapeutic intervention Activity Recommendations Activity Level: Assistance Required Therapies: Physical Therapy (WBAT), Occupational Therapy Weightbearing Status: Left weightbearing . Additional Information Patient informed of condition: Yes Advance Directives: Yes DNR: No Level of Care: Acute Rehab Communicable Disease: No Prognosis: Improving Instructions / Follow-Up Instructions / Follow-Up RTC appointment 2 weeks from surgery date. Keep wound clean and dry. Routine wound care, daily. Call physician if chills or temperature rises above 102 degrees or pain unrelieved by prescribed pain medications. Office [phone] Current Hospital Diet Patient's current hospital diet: Diabetes Type 2 Diet Discharge Diet Recommended Diet: Diabetes Type 2 Diet Procedures Procedures Performed: Long Intramedullary Nailing Left Hip Pending Studies Studies pending at discharge: no Laboratory Results Hemoglobin A1c Test 09/27/17 04:39 Range/Units Estimated Average Glucose 111 mg/dl Hemoglobin A1c 5.5 4.5-5.6 % Medical Emergencies . Who to Call and When: Medical Emergencies: If at any time you feel your situation is an emergency, please call 911 immediately. . Non-Emergent Contact Non-Emergency issues call your: Surgeon . . "Provider Documentation" section prepared by Michael Smith. . Core Measure Problem Core Measures: None
[2017-09-28 07:46] VITALS: BP 164/76; PULSE 114; TEMP 36.6; O2SAT 98
--- NOTE | 2017-09-28 07:50 | PROGRESS NOTE ---
DATE: 09/28/2017 SUBJECTIVE: An 82-year-old female postop day 2 from IM nailing of left intertrochanteric fracture. She is doing well. Pain is a 3/10. No chest pain or shortness of breath. Not feeling dizzy or lightheaded. OBJECTIVE: VITAL SIGNS: Temperature 36.7. Vital signs stable. GENERAL: Reveals a pleasant elderly female. I had to awake her this morning. She looks comfortable. EXTREMITIES: Examination of the left hip and leg reveals the leg to be well aligned. Incisions are clean, dry and intact. She is neurologically intact. LABORATORY DATA: Hemoglobin 8.3. Hematocrit 25.5. Electrolytes are stable. ASSESSMENT: An 82-year-old female postop day 2 from a left femur fracture, IM nailing, doing well. Her pain is controlled. She is neurologically intact. Wounds look good. Her hemoglobin is stable. PLAN: 1. DVT prophylaxis including thigh-high TEDs, SCDs, and would recommend aspirin 81 mg twice a day for 6 weeks. 2. PT/OT. She can weightbear as tolerated left lower extremity. 3. Pain control, doing well with current pain regimen. 4. Wound care. I did routine wound care. Wound looks good. No signs of problems. 5. Medical management as per the medicine service. 6. Disposition: She is orthopedically stable and acceptable for discharge any time. I need to see her back about 2 weeks out from her surgery date. Any questions can be directed to me at [phone].
[2017-09-28] MEDS: ASPIRIN 81 MG ECTAB PO SCH (10:12)
[2017-09-28] MEDS: FLUTICASONE/SALMETEROL (ADVAIR) 500/50 INH 14 PUFF INH SCH (10:12)
[2017-09-28] MEDS: INSULIN ASPART 100 UNITS/ML 3 ML PEN SC SCH ×2 (10:16→13:53)
--- NOTE | 2017-09-28 11:35 | Progress Note ---
Subjective Date of Service: Sep 28, 2017. Subjective Pt evaluation today including: conversation w/ patient, physical exam, lab review, review of studies, review of inpatient medication list Saw/examined the patient in room 350 No problems/issues at this time Pain controlled No BM yet, but passing gas No nausea/vomiting/fevers/chills Review of Systems Constitutional: No fever, No chills Respiratory: No shortness of breath Cardiac: No chest pain Abdomen: + constipation, No pain, No nausea, No vomiting, No diarrhea Musculoskeletal: No joint pain Medications Current Inpatient Medications Medications (Trade) Dose Ordered Sig/Kaley Route Start Time Stop Time Status Last Admin Dose Admin Salmeterol Xinafoate/ Fluticasone (Advair Diskus 500/50 Inh) 1 puff BID INH 09/26/17 09:00 10/26/17 08:59 09/28/17 10:12 1 PUFF Codeine Phosphate/ Guaifenesin (Robitussin-AC Sugar Free Syrup) 5 ml Q4 PRN PO 09/25/17 22:00 10/25/17 21:59 Levothyroxine Sodium (Synthroid Tab) 100 mcg DAILYBB PO 09/26/17 06:00 10/26/17 05:59 09/28/17 05:33 100 MCG Acetaminophen (Tylenol Tab) 650 mg Q4H PRN PO 09/25/17 22:00 10/25/17 21:59 09/27/17 20:36 650 MG Al Hydrox/Mg Hydrox/Simethicone (Maalox Max Susp) 15 ml Q4H PRN PO 09/25/17 22:00 10/25/17 21:59 Magnesium Hydroxide (Milk Of Magnesia Susp) 30 ml Q6H PRN PO 09/25/17 22:00 10/25/17 21:59 Polyethylene (Miralax Powder Packet) 17 gm DAILY PRN PO 09/25/17 22:00 10/25/17 21:59 Ondansetron HCl (Zofran Inj) 4 mg Q6H PRN IV 09/25/17 22:00 10/25/17 21:59 Morphine Sulfate (MoRPHine SULFATE INJ) 4 mg Q3H PRN IV 09/25/17 22:15 10/09/17 22:14 09/27/17 06:36 4 MG Naloxone HCl (Narcan Inj) 0.1 mg PRN PRN IV 09/25/17 22:15 10/25/17 22:14 Magnesium Hydroxide (Milk Of Magnesia Susp) 30 ml DAILY PRN PO 09/25/17 22:15 10/25/17 22:14 Bisacodyl (Dulcolax Supp) 10 mg DAILY PRN NM 09/25/17 22:15 10/25/17 22:14 Sodium Biphosphate/ Sodium Phosphate (Fleet Enema) 132 ml PRN PRN NM 09/25/17 22:15 Glucose (Glucose 40% Gel) 15-30 GRAMS 15 GRAMS... UD PRN PO 09/25/17 22:45 10/25/17 22:44 Glucose (Glucose Chew Tab) 4-8 Tablets 4 Tabl... UD PRN PO 09/25/17 22:45 10/25/17 22:44 Dextrose (Dextrose 50% 50ML Syringe) 25-50ML OF 50% DW IV FOR... UD PRN IV 09/25/17 22:45 10/25/17 22:44 Glucagon (Glucagon Inj) 1 mg UD PRN SQ 09/25/17 22:45 10/25/17 22:44 Miconazole Nitrate (Desenex Powder) 1 appln PRN PRN EXT 09/26/17 03:15 10/26/17 03:14 09/27/17 08:56 1 APPLN Senna/Docusate Sodium (Senokot S Tab) 2 tab HS PO 09/26/17 21:00 10/26/17 20:59 09/27/17 20:35 2 TAB Insulin Aspart (novoLOG ASPART) SLIDING SCALE G... ACHS SC 09/26/17 21:00 10/26/17 20:59 09/28/17 10:16 1 UNITS Aspirin (Ecotrin Tab) 81 mg BID PO 09/27/17 09:00 10/27/17 08:59 09/28/17 10:12 81 MG Oxycodone HCl (Roxicodone Immediate Rel Tab) 5 mg Q4H PRN PO 09/27/17 08:30 10/11/17 08:29 09/27/17 10:41 5 MG Objective Vital Signs Date Time Temp Pulse Resp B/P (MAP) Pulse Ox O2 Delivery O2 Flow Rate FiO2 09/28/17 08:52 Room Air 09/28/17 07:46 36.6 114 18 164/76 (105) 98 Room Air 09/28/17 00:05 Room Air 09/27/17 22:55 36.7 100 20 140/56 (84) 93 Room Air 09/27/17 15:30 Room Air 09/27/17 15:05 37.4 99 18 124/66 (85) 95 Room Air 09/27/17 11:55 36.7 93 19 148/80 (102) 94 Room Air Physical Exam General Appearance: + obese Respiratory/Chest: chest non-tender, lungs clear, normal breath sounds, no respiratory distress, no accessory muscle use Cardiovascular: no edema, no murmur, + tachycardia (sinus) Neurologic/Psychiatric: no motor/sensory deficits, alert, normal mood/affect Laboratory Results Last 24 Hours Test 09/27/17 12:03 09/27/17 17:01 09/27/17 20:35 09/28/17 06:04 Bedside Glucose 216 mg/dl 211 mg/dl 229 mg/dl White Blood Count 10.30 K/uL Red Blood Count 2.88 M/uL Hemoglobin 8.3 g/dL Hematocrit 25.5 % Mean Corpuscular Volume 88.5 fL Mean Corpuscular Hemoglobin 28.8 pg Mean Corpuscular Hemoglobin Concent 32.5 g/dl RDW Standard Deviation 47.6 fL RDW Coefficient of Variation 14.5 % Platelet Count 195 K/uL Mean Platelet Volume 9.7 fL Sodium Level 135 mmol/L Potassium Level 4.5 mmol/L Chloride Level 106 mmol/L Carbon Dioxide Level 23 mmol/L Anion Gap 6.0 mmol/L Blood Urea Nitrogen 16 mg/dl Creatinine 1.20 mg/dl Est Creatinine Clear Calc Drug Dose 37.7 ml/min Estimated GFR () 48.4 Estimated GFR (Non- 41.8 BUN/Creatinine Ratio 13.5 Random Glucose 198 mg/dl Calcium Level 9.2 mg/dl Assessment and Plan Intertrochanteric L hip Fracture 09/28 * doing well; aspirin 81mg BID for DVT ppx * plan to d/c to [facility] 09/27 * s/p repair * appreciate ortho input * pain regimen as per ortho * PT/OT * plan for rehab discharge Sinus Tachycardia * likely secondary to pain and volume depletion * improved HRs after pain medications given Asthma Hx. of Sarcoidosis * continue Advair * incentive spirometer DM2 * basal/bolus insulin while inpatient * well controlled as outpatient Aortic Sclerosis * stable, no significant stenosis LBBB * chronic/stable Hypothyroidism * TSH wnl * cont. Synthroid DVT ppx * aspirin BID Plan to d/c to rehab
[2017-09-28] MEDS ORDERED: RXC5 PO (11:38)
[2017-09-28] MEDS ORDERED: SENN8.6T7 PO (11:38)
[2017-09-28] MEDS ORDERED: MRLP17X PO (11:38)
[2017-09-28] MEDS ORDERED: ASPI1TAB83 PO (11:38)
--- NOTE | 2017-09-28 11:41 | Discharge Summary ---
Discharge Summary Date of Service Sep 28, 2017. Discharge Summary Admission Date: Sep 25, 2017 at 21:00 Discharge Date: Sep 28, 2017 Discharge Disposition: care home facility Principal Diagnosis: Intertrochanteric L hip Fracture s/p Repair Sinus Tachycardia Asthma Hx. of Sarcoidosis DM2 Aortic Sclerosis LBBB Hypothyroidism Medication Reconciliation New Medications: Oxycodone HCl (Oxycodone HCl) 5 Mg Tab 5 MG PO Q4H PRN for Pain for 5 Days, #30 TAB Polyethylene (Miralax) 17 Gm Pow 17 GM PO DAILY PRN for Constipation for 5 Days, #5 PKT Sennosides-Docusate Sodium (Senokot S) 1 Tab Tab 2 TAB PO HS for 5 Days, #10 TAB Changed Medications: Aspirin (Aspirin) 81 Mg Tab 1 TAB PO BID for 30 Days, #60 TAB 3 Refills (Changed from: DAILY; 30) Continued Medications: Clobetasol Propionate (Clobetasol Propionate) 0.05 % Oint Colestipol Hcl (Colestid) 1 Gm Tab 5 GM PO DAILY, TAB Fluticasone Prop/Salmeterol (Advair Diskus 500/50 60 Dose) 1 Ea Aerp 1 PUFFS INH BID for 30 Days, #1 INHALER 5 Refills Glipizide (Glipizide Er) 10 Mg Tab 1 TAB PO HS for 90 Days, TAB 1 Refill Guaifenesin/Codeine (Robitussin-Ac Syrup) Syrp 5 ML PO Q4 PRN for Cough for 6 Days, #120 ML Levothyroxine Sodium (Synthroid) 100 Mcg Tab 1 TAB PO DAILY for 30 Days, #30 TAB 5 Refills Metformin Hcl (Glucophage) 1,000 Mg Tab 1000 MG PO BID, TAB Miconazole Nitrate Vaginal (Miconazole) 2 % Cre Sitagliptin (Januvia) 50 Mg Tab 50 MG PO DAILY, TAB Admission Information HPI (per Admitting provider): 82 y/o F Hx HPL, hypothyroidism, DM II. Presents as a transfer from an outside hospital due to a L hip fracture. The pt was working outside her house, lost her balance, and fell on her L side. She remained on the ground for 45 min waiting for a car to pass by and then dragged herself indoors to call EMS. She denies symptoms preceding her fall such as CP, SOB, palpitations or lightheadedness. A L intertrochanteric fracture was confirmed on arrival to the hospital. The pt normally mobilizes with a cane. She has a chair-lift to ascend her stairs. She states she remains active throughout the day and does not report SOB. She denies a history of CAD, CHF or cerebrovascular disease. She states that her mitral valve is "weak". She has a LBBB which dates back to the 1980s. She stated that her MD at one point thought she had a silent MT but then told her that this was not the case. Physical Exam (per Admitting): General Appearance: WD/WN, no apparent distress Head: normocephalic Eyes: normal inspection ENT: normal ENT inspection, pharynx normal Neck: supple, no JVD Respiratory/Chest: chest non-tender, lungs clear Cardiovascular: regular rate, rhythm, no edema Abdomen/GI: normal bowel sounds, non tender, soft Back: normal inspection, no CVA tenderness Extremities/Musculoskelatal: + pertinent finding (Pain to palpation on L - pulses present BL) Neurologic/Psych: hall cleaner II-XII nml as tested, no motor/sensory deficits, alert , oriented x 3 Skin: normal color, warm/dry, + pertinent finding (some abrasion on LEs ) Hospital Course Intertrochanteric L hip Fracture 09/28 * doing well; aspirin 81mg BID for DVT ppx * plan to d/c to [facility] 09/27 * s/p repair * appreciate ortho input * pain regimen as per ortho * PT/OT * plan for rehab discharge Sinus Tachycardia * likely secondary to pain and volume depletion * improved HRs after pain medications given Asthma Hx. of Sarcoidosis * continue Advair * incentive spirometer DM2 * basal/bolus insulin while inpatient * well controlled as outpatient Aortic Sclerosis * stable, no significant stenosis LBBB * chronic/stable Hypothyroidism * TSH wnl * cont. Synthroid DVT ppx * aspirin BID Plan to d/c to rehab Total time spent on discharge = 35 minutes This includes examination of the patient, discharge planning, medication reconciliation, and communication with other providers. Discharge Instructions Should be on aspirin 81mg BID x 6 weeks for DVT ppx bowel regimen included to make sure she has a bowel movement at facility Instructions per ortho: RTC appointment 2 weeks from surgery date. Keep wound clean and dry. Routine wound care, daily.
[2017-09-28] MEDS: OXYCODONE HCL IR 5 MG TAB (IMMEDIATE RELEASE) PO PRN (12:48)
[2017-09-28 14:58] VITALS: BP 143/75; PULSE 100; TEMP 37.7; O2SAT 97
== END 2017-09-28 16:35 | DRG 482 ==
LOC: C.2T 21:00 → EDBEDREQ 22:07 → CANBEDREQ 22:07 → ENRESERV 23:05 → C.MSW 09-26 00:15
PROVIDERS: ADMIT Internal Medicine; ATTEND Family Medicine
PROC: 0QS706Z Reposition Left Upper Femur with Intramedullary Internal Fixation Device, Open Approach (ICD-10-PCS; principal; 2017-09-26 11:30)
DX: S72.142A Displaced intertrochanteric fracture of left femur, initial encounter for closed fracture (principal); W19.XXXA Unspecified fall, initial encounter; Y93.H9 Activity, other involving exterior property and land maintenance, building and construction; Y92.008 Other place in unspecified non-institutional (private) residence as the place of occurrence of the external cause; Y99.8 Other external cause status; R00.0 Tachycardia, unspecified; I44.7 Left bundle-branch block, unspecified; I35.8 Other nonrheumatic aortic valve disorders; J45.909 Unspecified asthma, uncomplicated; I12.9 Hypertensive chronic kidney disease with stage 1 through stage 4 chronic kidney disease, or unspecified chronic kidney disease; E11.22 Type 2 diabetes mellitus with diabetic chronic kidney disease; N18.3 Chronic kidney disease, stage 3 (moderate); E03.9 Hypothyroidism, unspecified; E78.5 Hyperlipidemia, unspecified; G47.33 Obstructive sleep apnea (adult) (pediatric); E66.9 Obesity, unspecified; Z68.34 Body mass index [BMI] 34.0-34.9, adult; Z86.2 Personal history of diseases of the blood and blood-forming organs and certain disorders involving the immune mechanism; Z85.828 Personal history of other malignant neoplasm of skin; Z79.82 Long term (current) use of aspirin; Z79.84 Long term (current) use of oral hypoglycemic drugs; Z79.899 Other long term (current) drug therapy; Z88.0 Allergy status to penicillin; Z88.1 Allergy status to other antibiotic agents; Z88.2 Allergy status to sulfonamides; Z88.8 Allergy status to other drugs, medicaments and biological substances; Z90.49 Acquired absence of other specified parts of digestive tract; Z90.710 Acquired absence of both cervix and uterus; Z98.890 Other specified postprocedural states